=== PATIENT | female | born 1955 | race Caucasian/White ===

== ENCOUNTER 2017-08-08 10:03 | Outpatient (CLI) | payer OTHER ==
[~2017-08-08 10:03] MED LIST: PROVENTIL0.5 ML/2.5; SINGULAIR4 MG
== END 2017-08-08 10:05 | disposition home or self-care (01) ==
LOC: RAD 10:03
DX: J44.1 Chronic obstructive pulmonary disease with (acute) exacerbation (principal)

== ENCOUNTER 2017-08-08 10:49 | Outpatient (CLI) | payer OTHER | END 2017-08-08 12:00 | disposition home or self-care (01) | LOC: NUCLEAR 10:49 | DX: I50.89 Other heart failure (principal) ==

== ENCOUNTER 2018-03-30 08:39 | Outpatient (CLI) | payer OTHER | END 2018-03-30 09:25 | disposition home or self-care (01) | LOC: LAB 08:39 | DX: N39.0 Urinary tract infection, site not specified (principal) ==

== ENCOUNTER 2018-03-30 09:18 | Outpatient (CLI) | payer OTHER | END 2018-03-30 09:31 | disposition home or self-care (01) | LOC: SONOGRAMA 09:18 | DX: R10.10 Upper abdominal pain, unspecified (principal); R10.30 Lower abdominal pain, unspecified ==

== ENCOUNTER 2018-05-12 09:42 | Outpatient (CLI) | payer OTHER | END 2018-05-12 09:54 | disposition home or self-care (01) | LOC: RAD 09:42 → TOM 09:45 → RAD 09:54 | DX: N13.39 Other hydronephrosis (principal); N61.0 Mastitis without abscess ==

== ENCOUNTER 2021-06-22 06:17 | Outpatient (CLI) | payer OTHER ==
[2021-06-24] MEDS ORDERED: NORVASC2.5 M1 PO (10:24)
[2021-06-24] MEDS ORDERED: DAFLONEX-XL 11300 MG PO (10:25)
== END 2021-06-22 06:18 | disposition home or self-care (01) ==
LOC: LAB 06:17
PROVIDERS: ATTEND Surgery
DX: D64.9 Anemia, unspecified (principal); I10 Essential (primary) hypertension; D68.9 Coagulation defect, unspecified; N39.0 Urinary tract infection, site not specified; E04.1 Nontoxic single thyroid nodule; E78.2 Mixed hyperlipidemia; E11.00 Type 2 diabetes mellitus with hyperosmolarity without nonketotic hyperglycemic-hyperosmolar coma (NKHHC)

== ENCOUNTER → 2021-06-26 | Day surgery (SDC) | payer OTHER ==
[~2021-06-26] MED LIST changes: +DAFLONEX-XL 11300 MG PO; +NORVASC2.5 M1 PO
== END | disposition home or self-care (01) ==
LOC: ADM 06-24 10:15 → CIR.AMB 05:55
PROVIDERS: ATTEND Surgery
DX: C50.312 Malignant neoplasm of lower-inner quadrant of left female breast (principal); Z88.0 Allergy status to penicillin; Z88.2 Allergy status to sulfonamides; Z91.010 Allergy to peanuts; I10 Essential (primary) hypertension; E78.5 Hyperlipidemia, unspecified; J45.909 Unspecified asthma, uncomplicated; Z86.711 Personal history of pulmonary embolism

== ENCOUNTER 2021-11-04 23:20 | Emergency (ER) | payer OTHER ==
[~2021-11-04] VITALS: Ht 160 cm; Wt 86.2 kg
[2021-11-05] MEDS ORDERED: LOVENOX60 MG/0.6 (00:20)
[2021-11-05] MEDS ORDERED: PRAVASTATIN SOD10 MG (00:22)
[2021-11-05] MEDS ORDERED: RESTORIL15 M1 (00:23)
[2021-11-05] MEDS ORDERED: NORVASC2.5 M1 (00:23)
== END 2021-11-05 13:41 | disposition home or self-care (01) ==
LOC: ER 23:20
DX: M79.662 Pain in left lower leg (principal)

== ENCOUNTER 2022-05-18 12:36 | Outpatient (CLI) | payer OTHER ==
[~2022-05-18 12:36] MED LIST changes: +LOVENOX60 MG/0.6; +NORVASC2.5 M1; +PRAVASTATIN SOD10 MG; +RESTORIL15 M1
== END 2022-05-18 12:44 | disposition home or self-care (01) ==
LOC: MAMO-SONO 12:36
DX: C50.312 Malignant neoplasm of lower-inner quadrant of left female breast (principal)

== ENCOUNTER 2024-07-03 08:12 | Outpatient (CLI) | payer OTHER | END 2024-07-03 08:20 | disposition home or self-care (01) | LOC: MRI 08:12 | DX: M25.512 Pain in left shoulder (principal) | CPT/HCPCS: 73221 ==